=== PATIENT | male | born 1970 | race Caucasian/White ===

== ENCOUNTER 2020-01-31 00:37 | Emergency (ER) | payer MEDICAID ==
--- NOTE | 2020-01-31 00:40 | ED Physician Documentation ---
History of Present Illness - Stated complaint Stated Complaint: DIZZY - History obtained from History obtained from: Patient - History of Present Illness Timing: Enter time (16:00), Today Pain level max: 0 Pain level now: 2 (neck) Improved by: lying still Worsened by: moving around, specifically turning head to right Associated symptoms: nausea, vomiting, dizziness - Additonal information Additional information: c/o rapid onset of dizziness, sensation of room spinning. onset approximately 4 PM today when cleaning the bathroom with bleach. nausea and vomiting associated with the dizzy sensation. Dizziness is worse with turning head, particularly to the right. Denies headache, but has mild right-sided neck/occipital discomfort. Moved to [facility] 1-2 weeks ago. Has not seen a doctor in a few years (unsure how long, but he says it's been years, though less than 5 years by his estimation) Review of Systems Constitutional: denies: Fever, Chills, Sweats Eyes: reports: Reviewed and negative Ears: reports: Reviewed and negative Nose: reports: Reviewed and negative Throat: denies: Sore throat Cardiac: reports: Reviewed and negative Respiratory: reports: Reviewed and negative GI: reports: Nausea, Vomiting. denies: Abdominal Pain : denies: Dysuria, Frequency Musculoskeletal: reports: Neck pain Neurologic: denies: Generalized weakness, Focal weakness, Numbness, Headache, Head injury Endocrine: denies: Polydypsia, Polyuria, Polyphagia PD PAST MEDICAL HISTORY - Past Medical History Past Medical History: No - Present Medications Home Medications: Ambulatory Orders Medication Instructions Recorded Confirmed Meclizine HCl 25 mg PO Q6HR PRN #20 tablet 01/31/20 Ondansetron Odt [Zofran] 4 mg TL Q6H PRN #10 tablet 01/31/20 metFORMIN [Glucophage] 500 mg PO BIDWM #60 tablet 01/31/20 - Allergies Allergies/Adverse Reactions: Allergies Allergy/AdvReac Type Severity Reaction Status Date / Time No Known Drug Allergies Allergy Verified 01/31/20 00:45 - Living Situation Living Arrangement: reports: At home - Social History Does the pt smoke?: No PD ED PE NORMAL - Vitals Vital signs reviewed: Yes - General General: Alert and oriented X 3, No acute distress (NAD at rest and lying still, but appears uncomfortable when being brought into ED from waiting room, and agin with movement involving moving his head (such as sitting up or turning head to his right)), Well developed/nourished - HEENT HEENT: PERRL, EOMI, Moist mucous membranes - Neck Neck: Supple, no meningeal sign - Cardiac Cardiac: RRR, No murmur - Respiratory Respiratory: No respiratory distress, Clear bilaterally - Abdomen Abdomen: Soft, Non tender - Derm Derm: Normal color, Warm and dry - Extremities Extremities: No edema - Neuro Neuro: Alert and oriented X 3, cryptologic technician technical 2-12 intact, No motor deficit, No sensory deficit, Normal speech Results - Vitals Vitals: Vital Signs - 24 hr 01/31/20 01/31/20 01/31/20 00:43 02:31 04:30 Temperature 37.1 C Heart Rate 115 H 112 H 114 H Respiratory 18 16 Rate Blood Pressure 176/100 H 140/103 H 136/85 H O2 Saturation 98 99 97 01/31/20 06:28 Temperature Heart Rate 119 H Respiratory 16 Rate Blood Pressure 148/96 H O2 Saturation 96 Oxygen O2 Source Room air - Labs Labs: Laboratory Tests 01/31/20 01/31/20 01/31/20 01:02 01:02 01:20 WBC 15.0 H RBC 5.19 Hgb 15.6 Hct 44.0 MCV 84.8 MCH 30.1 MCHC 35.5 RDW 11.6 L Plt Count 333 MPV 9.8 Neut # (Auto) 14.0 H Lymph # (Auto) 0.7 L [place] # (Auto) 0.2 Eos # (Auto) 0.0 Baso # (Auto) 0.0 Absolute Nucleated RBC 0.00 Nucleated RBC % 0.0 Sodium 134 L Potassium 4.0 Chloride 99 L Carbon Dioxide 18 L Anion Gap 17.0 H BUN 11 Creatinine 0.8 Estimated GFR (MDRD) 103 Glucose 292 H POC Whole Bld Glucose Glycated Hemoglobin 11.6 H Estim Average Glucose 286 H Calcium 9.3 Serum Ketones 01/31/20 01/31/20 01:20 05:26 WBC RBC Hgb Hct MCV MCH MCHC RDW Plt Count MPV Neut # (Auto) Lymph # (Auto) [place] # (Auto) Eos # (Auto) Baso # (Auto) Absolute Nucleated RBC Nucleated RBC % Sodium Potassium Chloride Carbon Dioxide Anion Gap BUN Creatinine Estimated GFR (MDRD) Glucose POC Whole Bld Glucose 213 H Glycated Hemoglobin Estim Average Glucose Calcium Serum Ketones SMALL H PD MEDICAL DECISION MAKING - ED course Complexity details: reviewed results, re-evaluated patient, considered differential, d/w patient ED course: Patient's description of symptoms and his exam are strongly s/o peripheral vertigo. He did not have adequate improvement after PO zofran and meclizine, so IV started and lab tests done, IV fluids given as well as repeat doses of zofran and meclizine. His lab tests are s/o DMII, with 292 blood glucose and A1C 11.6, small ketones. He was given total of 2 liters IV fluids and subsequent FSBS trended downwards. Given metformin with rx for metformin, antivert, and zofran with specific instructions to return if worse and follow up in the outpatient setting as soon as can be arranged. We discussed his high blood pressure as well as the suspected diagnosis of new-onset DM2, both of which can be addressed in the outpatient setting but, again, emphasizing that he should return to ED if he worsens in any way. Bo maneuver attempted; he reported no apparent change in his symptoms with this. Departure - Departure Disposition: 01 Home, Self Care Clinical Impression: Vertigo, Hyperglycemia High blood pressure Qualifiers: Hypertension type: unspecified Qualified Code(s): I10 - Essential (primary) hypertension Condition: Good Instructions: ED Dizziness UKO, ED Hypertension Poss, ED Vertigo Unspecified Follow-Up: [facility] [Provider Group] [facility] [Provider Group] Prescriptions: Meclizine HCl 25 mg PO Q6HR PRN #20 tablet PRN Reason: Vertigo metFORMIN [Glucophage] 500 mg PO BIDWM #60 tablet Ondansetron Odt [Zofran] 4 mg TL Q6H PRN #10 tablet PRN Reason: Nausea / Vomiting Comments: It is essential that you follow up with a doctor in the outpatient setting. Your blood pressure was high today, but you were not started on medication for this at this time because you will need to have the blood pressure rechecked to see if it remains high. Your blood sugar was high, as well, and another blood test (A1C) indicates that your blood sugar has been high for at least the last 2-3 months; you have been started on a medication (metformin) for this at this time, but you will need further testing and advice regarding the high blood sugar and its long-term management. Discharge Date/Time: 01/31/20 06:35
[2020-01-31] MEDS: MECLIZINE 12.5 MG TABLET PO STA ×2 (00:57→04:31)
[2020-01-31] MEDS: ONDANSETRON ODT 4 MG TABLET TL STA (00:57)
[2020-01-31 01:09] LABS: BASOPHILS % (AUTO) 0.2 %; HGB - HEMOGLOBIN 15.6 g/dL (14.0-18.0); LYMPHOCYTES # (AUTO) 0.7 10^3/uL (1.5-3.5); LYMPHOCYTES % (AUTO) 4.4 %; MEAN CORPUSCULAR HEMOGLOBIN 30.1 pg (27.0-31.0); MEAN CORPUSCULAR HGB CONC 35.5 g/dL (32.0-36.0); MEAN CORPUSCULAR VOLUME 84.8 fL (80.0-94.0); MEAN PLATELET VOLUME 9.8 fL (7.4-11.4); MONOCYTES # (AUTO) 0.2 10^3/uL (0.0-1.0); MONOCYTES % (AUTO) 1.3 %; NEUTROPHILS % (AUTO) 93.6 %; PLT - PLATELET COUNT 333 10^3/uL (130-450); RED BLOOD COUNT 5.19 10^6/uL (4.70-6.10); RED CELL DISTRIBUTION WIDTH 11.6 % (12.0-15.0)
[2020-01-31 01:18] LABS: CALCIUM 9.3 mg/dL (8.5-10.3); CREATININE 0.8 mg/dL (0.6-1.2)
[2020-01-31] MEDS: SODIUM CHLORIDE 0.9% 1,000 ML IV STA ×2 (02:37→04:31)
[2020-01-31] MEDS: KETOROLAC 30 MG/ML VIAL IVP STA (02:37)
[2020-01-31 02:46] LABS: HB2 TOTAL 16.2 g/dL; HEMOGLOBIN A1C 1.68 g/dL; HEMOGLOBIN A1C % 11.6 % (4.6-6.2)
[2020-01-31] MEDS: metFORMIN 500 MG TABLET PO STA (04:09)
[2020-01-31] MEDS: ONDANSETRON 4 MG/2 ML VIAL IVP STA (04:31)
[2020-01-31 06:29] VITALS: BP 148/96
== END 2020-01-31 06:35 | disposition home or self-care (01) ==
LOC: ED 00:37
DX: R42 Dizziness and giddiness (principal); R73.9 Hyperglycemia, unspecified; I10 Essential (primary) hypertension
CPT/HCPCS: 36415; 80048; 82009; 83036; 85025; 96361; 96374; 96375; 99283; 99284; A9270; Q0162

== ENCOUNTER 2020-02-01 19:33 | Emergency (ER) | payer MEDICAID ==
[2020-02-01 19:58] LABS: BASOPHILS % (AUTO) 0.2 %; HGB - HEMOGLOBIN 17.3 g/dL (14.0-18.0); LYMPHOCYTES # (AUTO) 0.9 10^3/uL (1.5-3.5); LYMPHOCYTES % (AUTO) 5.3 %; MEAN CORPUSCULAR HEMOGLOBIN 29.6 pg (27.0-31.0); MEAN CORPUSCULAR HGB CONC 33.9 g/dL (32.0-36.0); MEAN CORPUSCULAR VOLUME 87.2 fL (80.0-94.0); MEAN PLATELET VOLUME 9.7 fL (7.4-11.4); MONOCYTES # (AUTO) 0.9 10^3/uL (0.0-1.0); MONOCYTES % (AUTO) 5.2 %; NEUTROPHILS # (AUTO) 15.6 10^3/uL (1.5-6.6); NEUTROPHILS % (AUTO) 88.6 %; PLT - PLATELET COUNT 381 10^3/uL (130-450); RED BLOOD COUNT 5.85 10^6/uL (4.70-6.10); RED CELL DISTRIBUTION WIDTH 11.9 % (12.0-15.0); WHITE BLOOD COUNT 17.7 x10^3/uL (4.8-10.8)
--- NOTE | 2020-02-01 19:58 | ED Physician Documentation ---
PD HPI HEAD INJURY - Stated complaint Stated Complaint: HEAD INJURY - Chief complaint Chief Complaint: Trauma Hd/Nk - History obtained from History obtained from: Patient - History of Present Illness Mechanism of head injury: Blow (The family had heard a thud and went to the patient's room and saw him beside the bed lying on the floor. They thought he had likely hit his head on the nightstand as he rolled out of bed. He had taken his dose of medications for vertigo and blood sugar in the evening yesterday before that and they presumed he was having somnolence related to the medications. He was not complaining of headache and did not have any vomiting. However his somnolence and difficulty to arouse has continued through the day today so more concerning for other processes. Today they were unable to arouse him enough to get up to eat or drink. He wet himself on the bed and so was not having enough alertness to get up to go to the bathroom. He had not had any more doses of medication today.) Where head injury occurred: Home Timing - onset: Today (early AM about 5 am.) Location of injury: Right, Front Quality of pain: No: Pain, Aching Associated symptoms: AMS (somnolence). No: LOC, Nausea / vomiting Symptoms worsen with: Palpation Contributing factors: No: Anticoagulated, Intoxicated Similar symptoms before: Has not had sx before Recently seen: Emergency Dept (The patient was seen in the emergency department 2 nights ago for dizziness that had come on abruptly with vertigo on head motion and bending over. He does not have any localized weakness nor visual changes. His vertigo was positional and improved with rest. He was seen in the ER 01/30/2020 just around midnight and into the early hours of 01/31/2020. He had lab tests that showed an elevated blood sugar and A1c with normal electrolytes. He was discharged with meclizine metformin and Zofran for symptoms. He had been given dose of Zofran and meclizine in the ER. Family states they got the medicines for him and he took them during the day on 01/31/2020 (yesterday) but only a single dose. They noticed some sleepiness after the medication but still able to get up and around and interact. He was significantly more somnolent this morning.) Review of Systems Unable to obtain: AMS, Other (info from son-in-law) Constitutional: denies: Fever Nose: denies: Rhinorrhea / runny nose, Congestion Respiratory: denies: Cough Skin: reports: Abrasion (s). denies: Laceration (s) Neurologic: reports: Head injury (bedside nightstand about 5am this morning. Minimal abrasion to right forehead.). denies: Focal weakness, Numbness, Syncope, Seizure PD PAST MEDICAL HISTORY - Past Medical History Past Medical History: No Cardiovascular: None (no prior diagnosis of HTN.) Respiratory: None Neuro: None Endocrine/Autoimmune: None (no prior diagnosis of DM, just Dx yesterday) Musculoskeletal: None - Past Surgical History Past Surgical History: No - Present Medications Home Medications: Ambulatory Orders Medication Instructions Recorded Confirmed Meclizine HCl 25 mg PO Q6HR PRN #20 tablet 01/31/20 02/01/20 Ondansetron Odt [Zofran] 4 mg TL Q6H PRN #10 tablet 01/31/20 02/01/20 metFORMIN [Glucophage] 500 mg PO BIDWM #60 tablet 01/31/20 02/01/20 - Allergies Allergies/Adverse Reactions: Allergies Allergy/AdvReac Type Severity Reaction Status Date / Time No Known Drug Allergies Allergy Verified 02/01/20 19:51 - Living Situation Living Situation: reports: With family (moved to [facility] within the past year or so, and lives with daughter/son-in-law. Usually active. Not employed. ) Living Arrangement: reports: At home - Social History Does the pt smoke?: No Smoking Status: Never smoker PD ED PE NORMAL - Vitals Vital signs reviewed: Yes - General General: No acute distress, Well developed/nourished, Other (He is somnolent without any noted facial asymmetry. He is arousable to tactile stimuli and he will open his eyes and mumble some but not really answer questions coherently. He makes purposeful movement at trying to reach for his IV as it seems to be irritating him. He does localized to tactile stimuli. He does not follow commands.) - HEENT HEENT: PERRL, EOMI, Pharynx benign, Other (Normal gag reflex.) - Neck Neck: Supple, no meningeal sign, No adenopathy, No JVD - Cardiac Cardiac: No murmur, No rub. No: RRR (tachycardic but regular.) - Respiratory Respiratory: Clear bilaterally - Abdomen Abdomen: Normal bowel sounds, Soft, Non tender, Non distended - Derm Derm: Normal color, Warm and dry - Extremities Extremities: No edema, No calf tenderness / cord - Neuro Neuro: No motor deficit (Moves extremities symmetrically. He does withdraw to tactile and painful stimuli in all extremities.) Eye Opening: To Pain Motor: Localizes to Pain Verbal: Incomprehensible GCS Score: 9 Results - Vitals Vitals: Vital Signs - 24 hr 02/01/20 02/01/20 02/01/20 19:35 19:54 20:34 Temperature 37.1 C Heart Rate 132 H 127 H 122 H Respiratory 20 16 14 Rate Blood Pressure 131/87 H 162/110 H 148/101 H O2 Saturation 98 97 99 02/01/20 02/01/20 02/01/20 21:06 22:30 23:36 Temperature Heart Rate 123 H 125 H 116 H Respiratory 14 14 20 Rate Blood Pressure 162/98 H 155/85 H 161/110 H O2 Saturation 99 99 100 02/02/20 00:04 Temperature Heart Rate 135 H Respiratory 16 Rate Blood Pressure 142/86 H O2 Saturation 99 Oxygen O2 Source Room air - EKG (time done) 19:58 Rate: Rate (enter#) (128) Rhythm: Sinus tachycardia [place]: Normal Intervals: Normal CA QRS: Normal Ischemia: Normal ST segments. No: ST elevation c/w ischemia, ST depression Compare to prior EKG: Old EKG unavailable - Labs Labs: Laboratory Tests 02/01/20 02/01/20 02/01/20 19:51 19:51 19:51 WBC 17.7 H RBC 5.85 Hgb 17.3 Hct 51.0 MCV 87.2 MCH 29.6 MCHC 33.9 RDW 11.9 L Plt Count 381 MPV 9.7 Neut # (Auto) 15.6 H Lymph # (Auto) 0.9 L [place] # (Auto) 0.9 Eos # (Auto) 0.0 Baso # (Auto) 0.0 Absolute Nucleated RBC 0.00 Nucleated RBC % 0.0 ESR VBG pH VBG pCO2 VBG pO2 VBG HCO3 VBG Total CO2 VBG O2 Saturation VBG Base Excess Sodium 138 Potassium 4.3 Chloride 106 Carbon Dioxide 14 L Anion Gap 18.0 H BUN 30 H Creatinine 1.0 Estimated GFR (MDRD) 79 L Glucose 320 H Glycated Hemoglobin Estim Average Glucose Lactic Acid Calcium 9.2 Magnesium Total Bilirubin 1.7 H AST 28 ALT 48 Alkaline Phosphatase 134 H Troponin I High Sens 4.4 Total Protein 9.3 H Albumin 4.5 Globulin 4.8 H Albumin/Globulin Ratio 0.9 L Lipase 25 TSH Free T4 Free T3 pg/mL Urine Color Urine Clarity Urine pH Ur Specific [place] Urine Protein Urine Glucose (UA) Urine Ketones Urine Occult Blood Urine Nitrite Urine Bilirubin Urine Urobilinogen Ur Leukocyte Esterase Urine RBC Urine WBC Ur Squamous Epith Cells Urine Bacteria Urine Casts Ur Microscopic Review Urine Culture Comments Salicylates Urine Opiates Screen Ur Oxycodone Screen Urine Methadone Screen Ur Propoxyphene Screen Acetaminophen Ur Barbiturates Screen Ur Tricyclics Screen Ur Phencyclidine Scrn Ur Amphetamine Screen U Methamphetamines Scrn U Benzodiazepines Scrn Urine Cocaine Screen U Cannabinoids Screen Ethyl Alcohol Serum Ketones 02/01/20 02/01/20 02/01/20 19:51 19:51 19:51 WBC RBC Hgb Hct MCV MCH MCHC RDW Plt Count MPV Neut # (Auto) Lymph # (Auto) [place] # (Auto) Eos # (Auto) Baso # (Auto) Absolute Nucleated RBC Nucleated RBC % ESR 1 VBG pH VBG pCO2 VBG pO2 VBG HCO3 VBG Total CO2 VBG O2 Saturation VBG Base Excess Sodium Potassium Chloride Carbon Dioxide Anion Gap BUN Creatinine Estimated GFR (MDRD) Glucose Glycated Hemoglobin Estim Average Glucose Lactic Acid Calcium Magnesium 2.5 Total Bilirubin AST ALT Alkaline Phosphatase Troponin I High Sens Total Protein Albumin Globulin Albumin/Globulin Ratio Lipase TSH 0.11 L Free T4 Free T3 pg/mL Urine Color Urine Clarity Urine pH Ur Specific [place] Urine Protein Urine Glucose (UA) Urine Ketones Urine Occult Blood Urine Nitrite Urine Bilirubin Urine Urobilinogen Ur Leukocyte Esterase Urine RBC Urine WBC Ur Squamous Epith Cells Urine Bacteria Urine Casts Ur Microscopic Review Urine Culture Comments Salicylates < 6.0 Urine Opiates Screen Ur Oxycodone Screen Urine Methadone Screen Ur Propoxyphene Screen Acetaminophen < 10 L Ur Barbiturates Screen Ur Tricyclics Screen Ur Phencyclidine Scrn Ur Amphetamine Screen U Methamphetamines Scrn U Benzodiazepines Scrn Urine Cocaine Screen U Cannabinoids Screen Ethyl Alcohol < 5.0 Serum Ketones SMALL H 02/01/20 02/01/20 02/01/20 19:51 19:51 21:05 WBC RBC Hgb Hct MCV MCH MCHC RDW Plt Count MPV Neut # (Auto) Lymph # (Auto) [place] # (Auto) Eos # (Auto) Baso # (Auto) Absolute Nucleated RBC Nucleated RBC % ESR VBG pH VBG pCO2 VBG pO2 VBG HCO3 VBG Total CO2 VBG O2 Saturation VBG Base Excess Sodium Potassium Chloride Carbon Dioxide Anion Gap BUN Creatinine Estimated GFR (MDRD) Glucose Glycated Hemoglobin 11.9 H Estim Average Glucose 295 H Lactic Acid Calcium Magnesium Total Bilirubin AST ALT Alkaline Phosphatase Troponin I High Sens Total Protein Albumin Globulin Albumin/Globulin Ratio Lipase TSH Free T4 0.84 Free T3 pg/mL 3.24 Urine Color YELLOW Urine Clarity CLEAR Urine pH 6.0 Ur Specific [place] >=1.030 H Urine Protein 30 H Urine Glucose (UA) 500 H Urine Ketones >=80 H Urine Occult Blood MODERATE H Urine Nitrite NEGATIVE Urine Bilirubin NEGATIVE Urine Urobilinogen 0.2 (NORMAL) Ur Leukocyte Esterase NEGATIVE Urine RBC 0-5 Urine WBC 0-3 Ur Squamous Epith Cells NONE SEEN Urine Bacteria None Seen Urine Casts 6-10 Hyaline Casts Ur Microscopic Review INDICATED Urine Culture Comments NOT INDICATED Salicylates Urine Opiates Screen NEGATIVE Ur Oxycodone Screen NEGATIVE Urine Methadone Screen NEGATIVE Ur Propoxyphene Screen NEGATIVE Acetaminophen Ur Barbiturates Screen NEGATIVE Ur Tricyclics Screen NEGATIVE Ur Phencyclidine Scrn NEGATIVE Ur Amphetamine Screen NEGATIVE U Methamphetamines Scrn NEGATIVE U Benzodiazepines Scrn NEGATIVE Urine Cocaine Screen NEGATIVE U Cannabinoids Screen NEGATIVE Ethyl Alcohol Serum Ketones 02/01/20 02/01/20 22:12 22:51 WBC RBC Hgb Hct MCV MCH MCHC RDW Plt Count MPV Neut # (Auto) Lymph # (Auto) [place] # (Auto) Eos # (Auto) Baso # (Auto) Absolute Nucleated RBC Nucleated RBC % ESR VBG pH 7.242 L VBG pCO2 34.1 L VBG pO2 40.1 VBG HCO3 14.4 L VBG Total CO2 15.4 L VBG O2 Saturation 76.2 VBG Base Excess -11.8 L Sodium Potassium Chloride Carbon Dioxide Anion Gap BUN Creatinine Estimated GFR (MDRD) Glucose Glycated Hemoglobin Estim Average Glucose Lactic Acid 1.4 Calcium Magnesium Total Bilirubin AST ALT Alkaline Phosphatase Troponin I High Sens Total Protein Albumin Globulin Albumin/Globulin Ratio Lipase TSH Free T4 Free T3 pg/mL Urine Color Urine Clarity Urine pH Ur Specific [place] Urine Protein Urine Glucose (UA) Urine Ketones Urine Occult Blood Urine Nitrite Urine Bilirubin Urine Urobilinogen Ur Leukocyte Esterase Urine RBC Urine WBC Ur Squamous Epith Cells Urine Bacteria Urine Casts Ur Microscopic Review Urine Culture Comments Salicylates Urine Opiates Screen Ur Oxycodone Screen Urine Methadone Screen Ur Propoxyphene Screen Acetaminophen Ur Barbiturates Screen Ur Tricyclics Screen Ur Phencyclidine Scrn Ur Amphetamine Screen U Methamphetamines Scrn U Benzodiazepines Scrn Urine Cocaine Screen U Cannabinoids Screen Ethyl Alcohol Serum Ketones - Rads (name of study) head CT Radiology: Prelim report reviewed (There is a area of hypoattenuation in the right posterior area and a 6 mm area of bleed along the midline. There is dilation of the fourth ventricle consistent with some hydrocephalus locally. No midline shift.), See rad report chest xray and CT Radiology: Prelim report reviewed (No obvious acute process nor infiltrates noted.), See rad report PD MEDICAL DECISION MAKING - ED course Complexity details: reviewed results (Pt with DKA by labs, and started IV fluids gently and Insulin (did not want to fluid overload). Initially I had talked with our hospitalist regarding admission for DKA and altered mentation. I myself had not noticed the CT head findings. However with subsequent call from radiology with the small bleed in the area of surrounding inflammation, I obviously changed course to a higher level of care facility with neurosurgery and neurology. Contact was made with [facility] in the neurosurgeon I discussed with referred to the neuro protective services officer. I talked with them and they were accepting of transfer and wanted it promptly by air service.), re-evaluated patient, considered differential (The patient has altered mentation with history of recent vertigo and also new onset diabetes. The somnolence came after falling and hitting his head but also the new medications. Initially the family thought he was sleepy from the meclizine but the somnolence continued despite any further doses of the medicine. Will check metabolic processes as well as intracranial with a head CT and urine for tox.), d/w patient - Critical Care Time(min): 45 Time Includes: Direct patient care, Reassess patient, Document care, Coordinate care, Medical consult, Family consult for tx dec Data interpretation: Labs, Pulse ox, CXR Procedures excluded from critical care time: EKG Departure - Departure Disposition: 02 Transfer Acute Care Hosp Clinical Impression: Ketoacidosis, Low TSH level, Hyperglycemia, Intracranial hemorrhage Altered mental status Qualifiers: Altered mental status type: somnolence Qualified Code(s): R40.0 - Somnolence Condition: Stable Record reviewed to determine appropriate education?: Yes
[2020-02-01 20:09] LABS: ALBUMIN 4.5 g/dL (3.2-5.5); ALBUMIN/GLOBULIN RATIO 0.9 (1.0-2.2); BILIRUBIN,TOTAL 1.7 mg/dL (0.2-1.0); CALCIUM 9.2 mg/dL (8.5-10.3); TOTAL PROTEIN 9.3 g/dL (6.7-8.2)
[2020-02-01] MEDS ORDERED: SODIUM CHLORIDE 0.9% 1,000 ML IV STA (20:31)
[2020-02-01 20:47] LABS: KETONES, SERUM (ACETEST) SMALL (NEGATIVE)
[2020-02-01 20:54] LABS: ACETAMINOPHEN < 10 ug/mL (10-30); MAGNESIUM 2.5 mg/dL (1.7-2.8); SALICYLATE < 6.0 mg/dL
[2020-02-01 21:09] LABS: MUDS CUTOFF CONCENTRATIONS CUTOFF CONC BELOW:
[2020-02-01 21:12] LABS: GLUCOSE, URINE (UA) 500 mg/dL (NEGATIVE); KETONES,URINE (UA) >=80 mg/dL (NEGATIVE); LEUKOCYTE ESTERASE, URINE NEGATIVE (NEGATIVE); NITRITE,URINE NEGATIVE (NEGATIVE); OCCULT BLOOD,URINE MODERATE (NEGATIVE); PROTEIN,URINE 30 mg/dL (NEGATIVE); UROBILINOGEN,URINE 0.2 (NORMAL) E.U./dL (NORMAL)
[2020-02-01 21:19] LABS: BILIRUBIN,URINE NEGATIVE (NEGATIVE); CLARITY,URINE CLEAR (CLEAR); ICTOTEST,URINE NEGATIVE
[2020-02-01 21:22] LABS: AMPHETAMINE SCREEN,URINE NEGATIVE (NEGATIVE); BENZODIAZEPINES SCREEN, URINE NEGATIVE (NEGATIVE); COCAINE SCREEN URINE NEGATIVE (NEGATIVE); METHADONE SCREEN, URINE NEGATIVE (NEGATIVE); METHAMPHETAMINES SCREEN, URINE NEGATIVE (NEGATIVE); OPIATE SCREEN, URINE NEGATIVE (NEGATIVE); OXYCODONE SCREEN, URINE NEGATIVE (NEGATIVE); PROPOXYPHENE SCREEN, URINE NEGATIVE (NEGATIVE); TRICYCLIC ANTIDEPRESSANT,URINE NEGATIVE (NEGATIVE)
[2020-02-01 21:25] LABS: BACTERIA,URINE None Seen /HPF (None Seen); CASTS, URINE 6-10 Hyaline Casts /LPF; RBC,URINE 0-5 /HPF (0-5); SQUAMOUS EPITHELIAL CELL,UR NONE SEEN (<= Few)
[2020-02-01] MEDS ORDERED: INSULIN REGULAR HUMAN 100 UNIT/1 ML 10 ML MDV IVP STA (21:40)
--- NOTE | 2020-02-01 21:52 | XRAY Report ---
Reason: chest pain Procedure Date: 02/01/2020 Accession Number: [id number] / [id number] Procedure: XR - Chest 1 View X-Ray CPT Code: 05158 Final Report FULL RESULT: PROCEDURE: Chest 1 View X-Ray INDICATIONS: chest pain TECHNIQUE: One view of the chest was acquired. COMPARISON: FINDINGS: Surgical changes and devices: None. Lungs and pleura: No pleural effusions or pneumothorax. Lungs are edematous. Mediastinum: Mediastinal contours appear normal. Heart size is normal. Bones and chest wall: No suspicious bony lesions. Overlying soft tissues appear unremarkable. IMPRESSION: Diffuse alveolar edema pattern, cardiogenic pulmonary edema would be suspected. However, additional sources of alveolar edema should be considered to include drug reaction, inhalation injury, ARDS, atypical pneumonia. Reviewed by: Xavier Fountain MD on 02/01/2020 9:50 PM PDT Approved by: Xavier Fountain MD on 02/01/2020 9:50 PM PDT Station ID: [id number]
[2020-02-01 22:19] LABS: VBG BASE EXCESS -11.8 mmol/L (-2 - +2); VBG PCO2 34.1 mmHg (41-51); VBG PH 7.242 (7.31-7.41); VBG PO2 40.1 mmHg (25-47); VBG TOTAL CO2 15.4 mmol/L (24-29)
[2020-02-01 22:26] LABS: FREE T3 3.24 pg/mL (2.5-3.9)
[2020-02-01 22:27] LABS: FREE T4 (FREE THYROXINE) 0.84 ng/dL (0.58-1.64)
[2020-02-01] MEDS ORDERED: oxyCODONE 5 MG TABLET PO PRN (22:41)
[2020-02-01] MEDS ORDERED: SODIUM CHLORIDE FLUSH 0.9% 10 ML SYRINGE IVP PRN (22:41)
[2020-02-01] MEDS ORDERED: ONDANSETRON 4 MG/2 ML VIAL IVP PRN (22:41)
[2020-02-01] MEDS ORDERED: ACETAMINOPHEN 325 MG TABLET PO PRN (22:41)
[2020-02-01] MEDS ORDERED: ONDANSETRON ODT 4 MG TABLET TL PRN (22:41)
[2020-02-01] MEDS ORDERED: INSULIN ASPART 300 UNIT/3 ML PEN SUBQ SCH (23:00)
[2020-02-01] MEDS ORDERED: LACTATED RINGERS 1,000 ML IV SCH (23:00)
[2020-02-01 23:11] LABS: HB2 TOTAL 17.7 g/dL; HEMOGLOBIN A1C 1.89 g/dL; HEMOGLOBIN A1C % 11.9 % (4.6-6.2)
[2020-02-01] MEDS ORDERED: LORazepam 2 MG/ML VIAL IVP STA ×2 (23:41→23:42)
[2020-02-01] MEDS ORDERED: LORazepam 2 MG/ML VIAL ONE (23:43)
[2020-02-02] MEDS ORDERED: INSULIN REGULAR HUMAN 100 UNIT in SODIUM CHLORIDE 0.9% 100ML 99 ML IV STA (00:03)
[2020-02-02] MEDS ORDERED: SODIUM CHLORIDE FLUSH 0.9% 10 ML SYRINGE IVP SCH (01:00)
[2020-02-02 01:05] VITALS: BP 146/104
[2020-02-02] MEDS ORDERED: INSULIN ASPART 300 UNIT/3 ML PEN SUBQ SCH (08:00)
--- NOTE | 2020-02-02 08:18 | CT Report ---
Reason: fall with head injury Procedure Date: 02/01/2020 Accession Number: [id number] / [id number] Procedure: CT - CERVICAL SPINE WO CPT Code: Final Report FULL RESULT: PROCEDURE: CERVICAL SPINE WO INDICATIONS: fall with head injury TECHNIQUE: Noncontrast 3 mm thick sections acquired from the skull base to the T4 level. Sagittal and coronal reformats were then constructed. For radiation dose reduction, the following was used: automated exposure control, adjustment of mA and/or kV according to patient size. COMPARISON: None. FINDINGS: Image quality: Excellent. Bones: No fractures or dislocations. Visualized superior ribs are intact. Soft tissues: Prevertebral soft tissues are normal in thickness. No paravertebral hematomas. No apical pneumothoraces. IMPRESSION: No acute cervical spine fracture or dislocation. Reviewed by: Dorian Whitman MD on 02/02/2020 8:17 AM PDT Approved by: Dorian Whitman MD on 02/02/2020 8:17 AM PDT Station ID: [id number]
--- NOTE | 2020-02-02 08:18 | CT Report ---
Reason: fall with head injury Procedure Date: 02/01/2020 Accession Number: [id number] / [id number] Procedure: CT - HEAD WO CPT Code: Final Report FULL RESULT: PROCEDURE: HEAD WO INDICATIONS: fall with head injury TECHNIQUE: Noncontrast 4.5 mm thick angled axial sections acquired from the foramen magnum to the vertex. For radiation dose reduction, the following was used: automated exposure control, adjustment of mA and/or kV according to patient size. COMPARISON: None. FINDINGS: Image quality: Excellent. CSF spaces: Basal cisterns are patent. No extra-axial fluid collections. Lateral ventricles and third ventricles are prominent in size. Slight effacement of fourth ventricle is noted posteriorly. Brain: Ill-defined decreased attenuation involving right cerebellum is seen extending slightly across the midline to the left. There is 6 mm hyperdensity in the midline posteriorly. No other area of abnormal density is seen. No midline shift. Skull and face: Calvarium and visualized facial bones are intact, without suspicious lesions. Sinuses: Visualized sinuses and mastoids are clear. IMPRESSION: 1. Large area of abnormal hypoattenuation involving right cerebellum with associated 6 mm hyperdensity concerning for neoplastic process in this area with surrounding vasogenic edema and possibly associated focal small parenchymal hemorrhage. MRI without and with contrast can be done for further evaluation of this region. 2. No other area of intracranial bleed. No significant midline shift. 3. Slight effacement of fourth ventricle posteriorly with prominence of the ventricular sizes suggestive of obstructive hydrocephalus. No significant discrepancies from preliminary reading. Reviewed by: Dorian Whitman MD on 02/02/2020 8:17 AM PDT Approved by: Dorian Whitman MD on 02/02/2020 8:17 AM PDT Station ID: [id number]
--- NOTE | 2020-02-02 08:30 | CT Report ---
Reason: ABNORMAL CXR Procedure Date: 02/01/2020 Accession Number: [id number] / [id number] Procedure: CT - CHEST WO CPT Code: Final Report FULL RESULT: PROCEDURE: CHEST WO INDICATIONS: ABNORMAL CXR TECHNIQUE: Noncontrast 5 mm thick sections acquired from the pulmonary apices to the posterior costophrenic angles. 7 mm thick coronal and sagittal MIP reformats were then acquired. For radiation dose reduction, the following was used: automated exposure control, adjustment of mA and/or kV according to patient size. COMPARISON: Chest radiograph dated 02/01/2020 FINDINGS: Image quality: Diagnostic, motion artifacts are noted. Lungs and pleura: Mild dependent atelectasis in posterior aspect of bilateral lung best are seen. There is suggestion of very mild pulmonary edema versus pneumonitis with scattered hazy groundglass opacities. No pleural effusions or pneumothorax. Central and peripheral airways are patent and normal in caliber. Mediastinum: Heart size is normal. No pericardial effusion. No mediastinal adenopathy by size criteria. Thoracic aorta and central pulmonary arteries are normal in size. Esophagus is normal in caliber. There is a small hiatal hernia. Bones and chest wall: No suspicious bony lesions. No vertebral body compression fractures. No axillary or supraclavicular adenopathy by size criteria. The thyroid is normal in size. Abdomen: Visualized upper abdominal solid organs and bowel loops appear normal in the absence of contrast. IMPRESSION: 1. No focal infiltrate, pleural effusion or pneumothorax. Mild dependent atelectasis posteriorly. Suggestion of very mild pulmonary edema versus pneumonitis with scattered patchy groundglass opacities. 2. Small hiatal hernia. No mediastinal or hilar lymphadenopathy. No significant discrepancies from preliminary report. Reviewed by: Dorian Whitman MD on 02/02/2020 8:29 AM PDT Approved by: Dorian Whitman MD on 02/02/2020 8:29 AM PDT Station ID: [id number]
[2020-02-02] MEDS ORDERED: ENOXAPARIN 40 MG/0.4 ML SYRINGE SUBQ SCH (09:00)
[2020-02-02] MEDS ORDERED: INSULIN GLARGINE 300 UNIT/3 ML PEN SUBQ SCH (21:00)
== END 2020-02-02 01:45 | disposition short-term general hospital (02) ==
LOC: ED 19:33
DX: S06.370A Contusion, laceration, and hemorrhage of cerebellum without loss of consciousness, initial encounter (principal); S00.81XA Abrasion of other part of head, initial encounter; W06.XXXA Fall from bed, initial encounter; W22.03XA Walked into furniture, initial encounter; Y92.003 Bedroom of unspecified non-institutional (private) residence as the place of occurrence of the external cause; E11.10 Type 2 diabetes mellitus with ketoacidosis without coma; E11.65 Type 2 diabetes mellitus with hyperglycemia; Z79.84 Long term (current) use of oral hypoglycemic drugs; R79.89 Other specified abnormal findings of blood chemistry; R00.0 Tachycardia, unspecified
CPT/HCPCS: 36415; 51702; 70450; 71045; 71250; 72125; 80320; 80329; 81001; 82009; 82803; 83036; 83605; 83690; 83735; 84439; 84481; 84484; 85651; 93005; 99285; 99291; J1815; J2060; 80053; 80306; 80307; 81003; 84443; 85025; 87086